=== PATIENT | female | born 1945 | race Caucasian/White ===

== ENCOUNTER → 2018-12-23 | Outpatient (CLI) | payer MEDICARE | END | disposition home or self-care (01) | LOC: LABPAT 15:40 | PROVIDERS: ATTEND Surgery | DX: Z53.9 Procedure and treatment not carried out, unspecified reason (principal) ==

== ENCOUNTER 2018-12-31 06:02 | Day surgery (SDC) | payer MEDICARE ==
[2018-12-29 16:22] VITALS: BMI 44.7
[~2018-12-31 06:02] MED LIST: HEPARIN SODIUM,PORCINE 5,000 UNIT/ML 1 ML VIAL SQ ONE
[2018-12-31] MEDS ORDERED: DEXAMETHASONE SOD PHOSPHATE 10 MG/ML 1 ML VIAL IV ONE (06:05)
[2018-12-31] MEDS ORDERED: ONDANSETRON 4 MG/2 ML VIAL IVP PRN ×2 (06:05→09:15)
[2018-12-31] MEDS ORDERED: LIDOCAINE 1% 20 ML VIAL (10MG/ML) FOR IV START INTRADERMA PRN (06:05)
[2018-12-31] MEDS ORDERED: HYDROmorphone 0.5 MG/0.5 ML SYRINGE IVP PRN ×2 (06:05→09:15)
[2018-12-31] MEDS ORDERED: ONDANSETRON 4 MG/2 ML VIAL IVP ONE (06:05)
[2018-12-31] MEDS: LACTATED RINGERS 1,000 ML IV SCH (06:28)
[2018-12-31] MEDS ORDERED: MIDAZOLAM (PF) 2 MG/2 ML VIAL IV ONE (07:03)
[2018-12-31] MEDS ORDERED: fentaNYL (PF) 50 MCG/ML 2 ML AMP IV ONE (07:03)
[2018-12-31] MEDS ORDERED: ROCURONIUM BROMIDE 10 MG/ML 10 ML VIAL IV ONE (07:45)
[2018-12-31] MEDS ORDERED: PROPOFOL 10 MG/ML 20 ML VIAL IV ONE (07:45)
[2018-12-31] MEDS ORDERED: SUCCINYLCHOLINE CHLORIDE 100 MG/5 ML SYR IV ONE (07:45)
[2018-12-31] MEDS ORDERED: ePHEDrine SULFATE/0.9% NACL/PF 50 MG/5 ML SYRINGE IV ONE (07:45)
[2018-12-31] MEDS ORDERED: NEOSTIGMINE 1 MG/ML 10 ML VIAL ONE (07:45)
[2018-12-31] MEDS ORDERED: fentaNYL (PF) 50 MCG/ML 2 ML AMP ONE (07:45)
[2018-12-31] MEDS ORDERED: GLYCOPYRROLATE 0.2 MG/ML 2 ML VIAL ONE (07:45)
[2018-12-31] MEDS ORDERED: LIDOCAINE 1% INJ 10MG/ML (20 ML MDV) ONE (07:45)
[2018-12-31] MEDS ORDERED: BUPIVACAINE (PF) 0.5% 30 ML VIAL SQ ONE ×2 (08:18)
--- NOTE | 2018-12-31 08:52 | P.ANPRN ---
Procedure Note - Anesthesia - Nerve Block Performed Bilateral Rectus Abdominis Single Time Out Performed: Yes Date of Procedure: 12/31/18 Location of Patient Procedure: PreOp Indication: Acute Post-Operative Pain Specifically requested for management of pain by DrNikki: Cuate Gomez Sedation Type: Sedate with meaningful contact maintained Preparation: Sterile Prep Position: Supine Catheter: None Needle Types: Pajunk Needle Gauge: 20 Ultrasound used to visualize needle placement: Yes Ultrasound used to observe medication spread: Yes Injectate: Other (see comment) (0.25% ropivacaine/0.5% lidocaine 30 mL each side) Adjunct: Epinephrine (see comment for dilution ratio) (1:200,000) Narrative: Thick subcutaneous fat pad: muscle layers very thin. Blood Aspirated: No Pain Paresthesia on Injection Noted: No Resistance on Injection: Normal Image Stored and Saved: Yes Events: Uneventful and Well Tolerated
[2018-12-31] MEDS ORDERED: LACTATED RINGERS 1,000 ML IV ONE ×2 (08:54→09:15)
[2018-12-31] MEDS ORDERED: HYDROcodone/APAP 5-325MG 1 EACH TAB PO PRN (09:15)
[2018-12-31] MEDS ORDERED: ACETAMINOPHEN TAB 325 MG TAB PO PRN (09:15)
[2018-12-31] MEDS ORDERED: NALOXONE 0.4 MG/ML 1 ML VIAL IV PRN (09:15)
--- NOTE | 2018-12-31 09:19 | P.GSHP ---
History of Present Illness H&P Date: 12/31/18 Chief Complaint: Incarcerated incisional hernia This a 73-year-old female who has developed an incarcerated incisional hernia located in the medial aspect of her open cholecystectomy scar. Past Medical History Past Medical History: Hypertension History of Any Multi-Drug Resistant Organisms: None Reported Past Surgical History: Appendectomy, Section, Hernia Repair Additional Past Surgical History / Comment(s): umb hernia x3, [place] cataract sx Past Anesthesia/Blood Transfusion Reactions: Previous Problems w/ Anesthesia Additional Past Anesthesia/Blood Transfusion Reaction / Comment(s): spinal headache with csection in past Smoking Status: Never smoker Medications and Allergies Home Medications Medication Instructions Recorded Confirmed Type Losartan-Hctz 50-12.5 mg [Hyzaar 2 each PO DAILY 12/29/18 12/31/18 History 50-12.5] Allergies Allergy/AdvReac Type Severity Reaction Status Date / Time Penicillins Allergy Rash/Hives Verified 12/31/18 06:22 Surgical - Exam Vital Signs Temp Pulse Resp BP Pulse Ox 98.8 F 98 16 134/69 94 L 12/31/18 06:16 12/31/18 06:16 12/31/18 06:16 12/31/18 06:16 12/31/18 06:16 - General well developed, well nourished, no distress - Eyes PERRL - ENT normal pinna - Neck no masses - Respiratory normal expansion - Abdomen Abdomen: soft, non tender Hernia: incisional (10 cm incisional hernia located in the right upper quadrant epigastric.) Assessment and Plan Assessment: Incisional hernia. We'll perform repair with mesh.
--- NOTE | 2018-12-31 09:21 | P.OP ---
Date of Procedure: 12/31/18 Preoperative Diagnosis: Incarcerated incisional hernia Postoperative Diagnosis: Incarcerated incisional hernia Procedure(s) Performed: (Incarcerated incisional hernia with mesh Partial omentectomy Anesthesia: MICHAEL Surgeon: Cuate Gomez Estimated Blood Loss (ml): 10 Pathology: other (Incarcerated omentum/hernia sac) Condition: stable Disposition: PACU Description of Procedure: The patient's placed in the operative table in supine position. She received general anesthesia. Her abdomen was prepped and draped in usual sterile fashion. The skin was incised along the right subcostal scar. And then using left cautery and sharp dissection the subcutaneous tissues were divided off the fascia. The hernia defect was visualized. The hernia defect measured approximately 8 cm in diameter. The incarcerated omentum and hernia sac was then divided using left cautery and sent to pathology. The fascial defect was then closed with number once traffic suture. A piece of Prolene mesh was placed over top the repair and secured with a secure strap tacker. A OLIMPIA drains placed on top of the mesh and brought out through separate stab incision Meng's fascia closed with 0 Vicryl. Skin was closed johnson. Patient tolerated she will was sent to recovery room stable condition.
--- NOTE | 2018-12-31 14:13 | P.CONS ---
History of Present Illness - Reason for Consult Recommendations regarding antihypertensive medications - History of Present Illness Patient is a pleasant 71-year-old female was admitted for incisional hernia repair subsequently underwent surgery patient denied any pain has minimal soreness in the abdominal surgical site area. Patient does have hypertension to take her blood pressure medications today morning. I'm holding her antidepressant medications as hypotension is expected in most patients postop eratively and perioperatively. Will monitor her blood pressure. Patient denied any fever chills nausea vomiting patient doesn't have the Amaral catheter at this time. Review of Systems REVIEW OF SYSTEMS: CONSTITUTIONAL: No fever, no malaise, no fatigue. HEENT: No recent visual problems or hearing problems. Denied any sore throat. CARDIOVASCULAR: No chest pain, orthopnea, PND, no palpitations, no syncope. PULMONARY: No shortness of breath, no cough, no hemoptysis. GASTROINTESTINAL: No diarrhea, no nausea, no vomiting, no abdominal pain. NEUROLOGICAL: No headaches, no weakness, no numbness. HEMATOLOGICAL: Denies any bleeding or petechiae. GENITOURINARY: Denies any burning micturition, frequency, or urgency. MUSCULOSKELETAL/RHEUMATOLOGICAL: Denies any joint pain, swelling, or any muscle pain. ENDOCRINE: Denies any polyuria or polydipsia. The rest of the 14-point review of systems is negative. Past Medical History Past Medical History: Hypertension History of Any Multi-Drug Resistant Organisms: None Reported Past Surgical History: Appendectomy, Section, Cholecystectomy, Hernia Repair Additional Past Surgical History / Comment(s): umb hernia x3, micho[place] cataract sx Past Anesthesia/Blood Transfusion Reactions: Previous Problems w/ Anesthesia Additional Past Anesthesia/Blood Transfusion Reaction / Comm: spinal headache with csection in past 1974 Smoking Status: Never smoker Medications and Allergies Home Medications Medication Instructions Recorded Confirmed Type Losartan-Hctz 50-12.5 mg [Hyzaar 2 each PO DAILY 12/29/18 12/31/18 History 50-12.5] Allergies Allergy/AdvReac Type Severity Reaction Status Date / Time Penicillins Allergy Rash/Hives Verified 12/31/18 06:22 Physical Exam Vitals: Vital Signs Temp Pulse Pulse Resp BP BP Pulse Ox 12/31/18 11:56 98.3 F 91 16 120/77 93 L 12/31/18 11:50 93 L 12/31/18 11:00 87 18 128/59 96 12/31/18 10:30 79 16 126/60 97 12/31/18 09:49 82 18 122/57 97 12/31/18 09:34 92 18 118/56 97 12/31/18 09:19 77 14 119/61 98 12/31/18 09:04 97.3 F L 96 11 L 115/76 97 12/31/18 07:41 88 16 142/56 94 L 12/31/18 07:35 91 16 152/68 94 L 12/31/18 07:27 90 16 171/72 92 L 12/31/18 07:17 80 16 146/72 92 L 12/31/18 06:16 98.8 F 98 16 134/69 94 L Intake and Output 12/30/18 12/31/18 12/31/18 22:59 06:59 14:59 Intake Total 500 1550 Output Total 55 Balance 500 1495 Intake: IV 500 950 Intake, IV Titration 300 Amount Lactated Ringers 1,000 ml 300 @ 125 mls/hr IV .Q8H ONE Rx#:[id number] Oral 300 Output: Estimated Blood Loss 55 Other: # Voids 1 PHYSICAL EXAMINATION: GENERAL: The patient is alert and oriented x3, not in any acute distress. Well developed, well nourished. HEENT: Pupils are round and equally reacting to light. EOMI. No scleral icterus. No conjunctival pallor. Normocephalic, atraumatic. No pharyngeal erythema. No thyromegaly. CARDIOVASCULAR: S1 and S2 present. No murmurs, rubs, or gallops. PULMONARY: Chest is clear to auscultation, no wheezing or crackles. ABDOMEN: Abdominal binder in place does have sluggish bowel sounds. MUSCULOSKELETAL: No joint swelling or deformity. EXTREMITIES: No cyanosis, clubbing, or pedal edema. NEUROLOGICAL: Gross neurological examination did not reveal any focal deficits. SKIN: No rashes. Assessment and Plan Plan: -Hypertension: Hold Avandia was medications for expected perioperative hypotension with monitor blood pressure depending on her blood pressure will reinitiate her anti-happens medications. -Incisional hernia repair pain management as per and due to prophylaxis per primary service
[2018-12-31] MEDS ORDERED: MAG HYDROX/AL HYDROX/SIMETH 30 ML CUP PO PRN (17:37)
[2018-12-31] MEDS: FAMOTIDINE 20 MG TAB PO SCH (18:52)
[2019-01-01] MEDS: LACTATED RINGERS 1,000 ML IV SCH (06:09)
[2019-01-01] MEDS: FAMOTIDINE 20 MG TAB PO SCH (08:40)
[2019-01-01] MEDS ORDERED: ENOXAPARIN 40 MG/0.4 ML SYRINGE SQ SCH (09:00)
[2019-01-01] MEDS ORDERED: LOSARTAN-HCTZ 50-12.5 MG 1 EACH TAB PO SCH (10:00)
[2019-01-01 10:49] LABS: Basophils % (A) 1 %; Eosinophils % (A) 0 %; HGB 13.9 gm/dL (11.4-16.0); Lymphocytes # (A) 1.7 k/uL (1.0-4.8); Lymphocytes % (A) 18 %; MCH 29.6 pg (25.0-35.0); MCHC 33.1 g/dL (31.0-37.0); MCV 89.4 fL (80.0-100.0); Mean Platelet Volume 7.9; Monocytes # (A) 0.5 k/uL (0-1.0); Monocytes % (A) 5 %; Neutrophils # (A) 6.9 k/uL (1.3-7.7); Neutrophils % (A) 75 %; Platelet Count 248 k/uL (150-450); RDW 13.8 % (11.5-15.5); WBC 9.2 k/uL (3.8-10.6)
--- NOTE | 2019-01-01 11:01 | P.DS ---
Providers Expected date of discharge: 01/01/19 Attending physician: Cuate Gomez Consults: 12/31/18 09:15 Consult Physician Routine Consulting Provider: Barry Tolliver Consult Reason/Comments: Medical management Do you want consulting provider notified?: Yes Primary care physician: Amilcar Valencia MD Hospital Course: 73 year female who underwent repair of incarcerated incisional hernia with mesh and partial omentectomy. Patient is doing well postoperatively without any immediate complications. Her pain is controlled on oral medications. Tolerating diet without nausea or vomiting. Vital signs have been stable. She is stable for discharge home today. Please see EMR for further hospital course details. Discharge Diagnosis: 1. s/p repair of incarcerated incisional hernia with mesh and partial omentectomy Nurse practitioner note has been reviewed by physician. Signing provider agrees with the documented findings, assessment, and plan of care. Patient Condition at Discharge: Stable Plan - Discharge Summary Discharge Rx Participant: Yes New Discharge Prescriptions: No Action Losartan-Hctz 50-12.5 mg [Hyzaar 50-12.5] 2 each PO DAILY Discharge Medication List Losartan-Hctz 50-12.5 mg [Hyzaar 50-12.5] 2 each PO DAILY 12/29/18 [History] Follow up Appointment(s)/Referral(s): Cuate Gomez MD [STAFF PHYSICIAN] - 01/08/19 2:30 pm
[2019-01-01 11:18] LABS: African American GFR (CKD) >90 (>60 ml/min/1.73 sqM); Anion Gap 4 mmol/L; Blood Urea Nitrogen 13 mg/dL (7-17); Calcium 9.7 mg/dL (8.4-10.2); Carbon Dioxide 36 mmol/L (22-30); Chloride 102 mmol/L (98-107); Glucose 148 mg/dL (74-99); Potassium 3.9 mmol/L (3.5-5.1); Sodium 142 mmol/L (137-145)
[2019-01-01 14:53] VITALS: BP 134/74; PULSE 86; RESP 16; TEMP 98.2
--- NOTE | 2019-01-01 14:55 | P.PN ---
Subjective Progress Note Date: 01/01/19 Principal diagnosis: Patient is a pleasant 71-year-old female was admitted for incisional hernia repair subsequently underwent surgery. patient denied any pain, has minimal soreness in the abdominal surgical site area. Patient does have history of hypertension. We are holding her antihypertensive medications as hypotension is expected in most patients postoperatively and perioperatively. Will monitor her blood pressure. Patient denied any fever chills nausea vomiting patient doesn't have the Amaral catheter at this time. 01/01/2019 Patient is sitting up at the side of the bed in no acute distress. 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 Patient denies any shortness of breath, chest pain, or palpitations at this time. Patient states she is having some mild discomfort in the abdomen with position changes but otherwise would like to go home. Patient is afebrile. Patient denies any nausea or vomiting and is tolerating diet. Patient states that she is passing gas. is at the bedside. Objective - Vital Signs Vital signs: Vital Signs Temp 98.0 F 01/01/19 07:00 Pulse 78 01/01/19 07:00 Resp 18 01/01/19 07:00 BP 140/77 01/01/19 07:00 Pulse Ox 92 L 01/01/19 07:00 Intake & Output 12/31/18 01/01/19 01/01/19 18:59 06:59 18:59 Intake Total 1550 Output Total 55 58 Balance 1495 -58 Intake: IV 950 Intake, IV Titration 300 Amount Lactated Ringers 1,000 ml 300 @ 125 mls/hr IV .Q8H ONE Rx#:[id number] Oral 300 Output: Drainage 58 Left Upper Abdomen 58 Estimated Blood Loss 55 Other: Voiding Method Toilet # Voids 1 3 2 - Exam GENERAL: The patient is alert and oriented x3, not in any acute distress. Well developed, well nourished. Vital signs are stable. Temp is 98F, pulse is 78, respirations are 18, blood pressure is 140/77, oxygen saturation is 92% on room air. HEENT: Pupils are round and equally reacting to light. EOMI. No scleral icterus. No conjunctival pallor. Normocephalic, atraumatic. No pharyngeal erythema. No thyromegaly. CARDIOVASCULAR: S1 and S2 present. No murmurs, rubs, or gallops. PULMONARY: Chest is clear to auscultation, no wheezing or crackles. ABDOMEN: Mild tenderness with palpation, positive bowel sounds noted. Abdominal binder in place MUSCULOSKELETAL: No joint swelling or deformity. EXTREMITIES: No cyanosis, clubbing, or pedal edema. NEUROLOGICAL: Gross neurological examination did not reveal any focal deficits. SKIN: No rashes. - Labs CBC & Chem 7: 01/01/19 10:30 01/01/19 10:30 Labs: Abnormal Lab Results - Last 24 Hours (Table) 01/01/19 Range/Units 10:30 Carbon Dioxide 36 H (22-30) mmol/L Glucose 148 H (74-99) mg/dL Assessment and Plan Assessment: -Hypertension: Hold antihypertensive medications for expected perioperative hypotension with monitor blood pressure depending on her blood pressure will reinitiate her antihypertensive medications upon discharge. -Incisional hernia repair pain management and dvt prophylaxis per primary service Recommendations and discussion: Recommend continue current medications, management, and symptomatic treatment. Will reinitiate antihypertensive medications. Continue to encourage ambulation and the use of the incentive spirometer. Discussed with the patient at length about continuing to ambulate at home but not to overdo it as he just underwent surgery. Encouraged oral intake of water to increase bowel activity and bowel movements. Guarded prognosis. Further recommendations to follow. Per surgery patient will be discharged this afternoon.
== END 2019-01-01 15:54 | disposition home or self-care (01) ==
LOC: OR 06:02 → 4SSUR 09:04 → OR 01-01 15:54
PROVIDERS: ATTEND Surgery
DX: K43.0 Incisional hernia with obstruction, without gangrene (principal); I10 Essential (primary) hypertension; Z88.0 Allergy status to penicillin; Z79.899 Other long term (current) drug therapy; Z90.49 Acquired absence of other specified parts of digestive tract; Z98.890 Other specified postprocedural states; Z98.42 Cataract extraction status, left eye; Z98.41 Cataract extraction status, right eye
CPT/HCPCS: 49561; 49568; 94760; 64488; 88305; 80048; 85025; C1781; J1100; J2710; J0690; J2405; J2001; J1650; J3010; J0330; J2704; J2250